=== PATIENT | male | born 1945 | race Caucasian/White ===

== ENCOUNTER 2021-09-19 15:36 | Outpatient (RCR) | payer MEDICARE, SELFPAY ==
--- NOTE | 2021-09-19 17:17 | HP.PTEVAL ---
Patient's Visit Information NETO PHILLIPS is a 76 year old M referred to Physical Therapy by Dr. Marlo Ortega, DO with a diagnosis of S/P RIGHT TOTAL HIP ARTHROPLASTY FOR FRACTURE. Date of Evaluation: 09/19/21 Physical Therapist: Chay Cuenca PT, Cert MDT, OCS - Visit Plan Frequency: 1 VISIT Plan: S/P CARA. PT EVAL ONLY AND HEP PER PATIENT - Subjective This 76 y/o male presents to physical therapy with right CARA anterior approach on 08/16/21 at [facility]. While being on vacation ,Patient fell down 3 steps sustained right hip fracture. Patient d/c next with FWW with WBAT. Patient return to home 08/19/21 . Patient seen DR Wilson and did x-rays looked good. HOME SITUATION: multiple level but stair lifts ,walking in shower with grab rails. Denies paresthesia/tingling. Patient doesn't use walker in house. Patient goals to return to prior level function. No pain meds. H/O left kidney CA . VOCATION: [place] Attendance. SOCAIL: - Objective POSTURE: mild forward posture. GAIT: ambulated with fww reciprocal pattern, ambulated with no device reciprocal pattern reciprocal pattern. BALANCE: good - no device. AROM: Hip flexion 95 degrees ,abduction 35 degrees ,knee flexion 0-110 degrees. MMT: quads/hams 4-/5,hip flexion 4-/5,abd 3+/5 - Goals Goal 1:: PROVIDED HEP FOR CARA - Rehabilitation Potential Physical Therapy Diagnosis: This patient underwent s/p CARA anterior approach falling a fracture from falls with decrease gait ,strength and endurance Rehabilitation Potential: Good - Anticipated Interventions Patient/Client Instruction: Educate patient on: Condition, Plan of Care For the Purpose of:: To improve muscle performance and motor function, To improve ability to perform ADL's, To increase tolerance to activity/condition/position, To improve ability of physical actions for home/community/work/leisure Thank you for the opportunity to evaluate your patient. For Medicare and Medicare HMO plans, please review the plan of care and approve it. It will need to be FAXED BACK to us at [phone] for Medicare purposes. For Medicare only, by signing this I certify the plan of care. Please let me know if there are questions or concerns regarding this plan of care. Physician Signature: Date:
== END 2021-09-19 19:00 | disposition home or self-care (01) ==
LOC: PT 15:36
PROVIDERS: PCP Family Medicine; Referring Provider Orthopaedic Surgery; Visit Provider Orthopaedic Surgery
DX: Z98.890 Other specified postprocedural states (principal)
CPT/HCPCS: 97110; 97162